=== PATIENT | female | born 1980 | race Caucasian/White ===

== ENCOUNTER → 2018-06-18 | Outpatient (CLI) | payer OTHER ==
--- NOTE | 2018-06-18 13:46 | Diagnostic Imaging Report ---
INDICATION: survey. TECHNIQUE: Multiple real-time grayscale images were obtained over the gravid uterus. COMPARISON: None. FINDINGS: There is a single live fetus in a cephalic presentation. heart rate was recorded at 144 beats per minute. The placenta is posterior. No previa is seen. The amniotic fluid volume is normal. Cervical length is 4.2 cm. survey demonstrates kidneys, bladder, and stomach to be unremarkable. The brain is unremarkable. There is a four-chamber heart. There is a three-vessel cord with normal insertion. The spine is unremarkable. Biometrical measurements are as follows: Biparietal 5.01 cm, age 21 weeks 2 days. Head circumference 19.83 cm, age 22 weeks 1 days. Abdominal circumference 18.26 cm, age 23 weeks 1 days. Femur length 4.1 cm, age 23 weeks 3 days. Sonographic estimate age: 22 weeks 4 days. Sonographic estimated date of delivery: 10/18/2017. Estimated Weight: 551 gm (+/- 80 gm). LMP percentile: 48%. heart rate: 144 beats per minute. number: 1 of 1. IMPRESSION: Single live IUP at 22 weeks 4 days gestational age. The estimated date of confinement sonographically is 10/18/2018. Dictated by: Dictated on workstation # [id number]
== END ==
LOC: RAD 12:07
PROVIDERS: ATTEND Obstetrics & Gynecology
DX: Z36.89 Encounter for other specified antenatal screening (principal); Z3A.22 22 weeks gestation of pregnancy
CPT/HCPCS: 76805

== ENCOUNTER 2018-10-02 06:35 | Inpatient (IN) | payer OTHER ==
[~2018-10-02] VITALS: Ht 167.6 cm; Wt 101.6 kg
[2018-10-02] VITALS (52 sets, daily range): BP systolic 80–181; BP diastolic 46–113
--- NOTE | 2018-10-02 06:45 | NUR ---
SENTHIL GONGORA presented to unit via ambulatory from ED, accompanied by s.o, with c/o INDUCTION. SENTHIL GONGORA weighed, gowned, voided, and to bed. EFHM and TOCO applied, VS taken. SENTHIL GONGORA oriented to bed controls, call light, TV, heat, and A/C controls.
[2018-10-02] MEDS ORDERED: OXYTOCIN/NORMAL SALINE 500 ML IV SCH ×2 (06:57→19:21)
--- NOTE | 2018-10-02 07:10 | NUR ---
Nurse in pt room. Report received from Venita Newell RN. Pt up in [facility] for repair. at warmer being assessed. 0715: Dr. Chen done with repair. Pt cleaned up and taken out of [facility]. Fundus firm and one under umbilicus with minimal bleeding noted. at this time.
--- NOTE | 2018-10-02 07:20 | NUR ---
Pt. complains that her IV is really hurting. Upon inspection edema and tenderness noted. IV has infiltrated. Fundus rubbed to check bleeding at this time. Minimal bleeding with firm fundus one under umbilicus. 0726: Dr. Chen called with report of infiltrated IV. Given report of current bleeding status. states that a new IV does not need to be started at this time, but to watch her bleeding and to call him with any changes.
[2018-10-02] MEDS: D5 LR IV SOLUTION 1,000 ML IV SCH ×2 (07:30→15:35)
[2018-10-02 08:10] LABS: BASOPHILS % (AUTO) 0 % (0-10); EOSINOPHILS % (AUTO) 1 % (0-10); HEMATOCRIT 29 % (35-52); LYMPHOCYTES # (AUTO) 1.8 X 10^3 (1.0-4.0); LYMPHOCYTES % (AUTO) 25 % (12-44); MEAN CORPUSCULAR HGB CONC 32 G/DL (32-36); MEAN CORPUSCULAR VOLUME 77 FL (80-99); MEAN PLATELET VOLUME 10.9 FL (7.4-10.4); MONOCYTES # (AUTO) 0.6 X 10^3 (0.0-1.0); MONOCYTES % (AUTO) 8 % (0-12); NEUTROPHILS # (AUTO) 4.8 X 10^3 (1.8-7.8); NEUTROPHILS % (AUTO) 67 % (42-75); PLATELET COUNT 239 10^3/uL (130-400); RED BLOOD COUNT 3.68 10^6/uL (4.35-5.85); RED CELL DISTRIBUTION WIDTH 14.3 % (10.0-14.5); WHITE BLOOD COUNT 7.2 10^3/uL (4.3-11.0)
[2018-10-02 08:11] LABS: MEAN CORPUSCULAR HEMOGLOBIN 24 PG (25-34)
[2018-10-02] MEDS ORDERED: SUFENTA 0.6MCG/ML BUPIVA 0.125 100 ML ONE (12:35)
[2018-10-02] MEDS ORDERED: CATHETER FLUSH 10 ML SYR IV SCH ×2 (14:00→22:00)
[2018-10-02] MEDS ORDERED: LACTATED RINGERS 1,000 ML IV SCH (14:03)
[2018-10-02] MEDS ORDERED: ONDANSETRON 4 MG/2 ML (SDV) Z0FRAN IV PRN (14:15)
[2018-10-02] MEDS ORDERED: diphenhydrAMINE 50 MG/ML INJ (BENADRYL) IV PRN (14:15)
[2018-10-02] MEDS ORDERED: EPIDURAL (SUFENTA 0.6MCG/ML BUPIVA 0.125%) 100 ML BAG EPI SCH (14:15)
[2018-10-02] MEDS ORDERED: METOCLOPRAMIDE INJ 10 MG/2 ML (REGLAN) IV PRN (14:15)
[2018-10-02] MEDS ORDERED: NALOXONE 0.4 MG/ML 1 ML (NARCAN) VIAL IV PRN ×2 (14:15)
[2018-10-02] MEDS ORDERED: LIDOCAINE/EPI 2% 1:200,00 (XYLOCAINE) 10 ML VIAL ONE (18:56)
[2018-10-02] MEDS ORDERED: TETANUS,DIPTH,PERTUSS P/F (BOOSTRIX) 0.5 ML VIAL IM ONE (19:30)
[2018-10-02] MEDS ORDERED: MEASLES,MUMPS,RUBELLA 1 EA INJ SQ ONE (19:30)
[2018-10-02] MEDS ORDERED: BENZOCAINE/MENTHOL (DERMOPLAST) 56 ML CAN TP PRN (19:30)
[2018-10-02] MEDS ORDERED: WITCH HAZEL(TUCKS) 40 EA JAR TOP PRN (19:30)
[2018-10-02] MEDS ORDERED: DIBUCAINE (NUPERCAINAL) 1% OINT 30 GM TOP PRN (19:30)
--- NOTE | 2018-10-02 19:31 | History & Physical-OB ---
OB - Chief Complaint & HPI Date/Time Date of Admission: Date of Admission: Oct 02, 2018 at 06:35 Date seen by a Provider: Oct 02, 2018 Time Seen by a Provider: 07:30 Chief Complaint/History OB-Reason for Admission/Chief: Induction of Labor Hx : 3 Hx Para: 2 Expected Date of Delivery: Oct 16, 2018 Gestational Age in Weeks: 38 Gestational Age in Days: 0 Indication for induction: other (Mild PreE) Admission Nurse Assessment Rev: Yes History of Labs Laboratory Tests Test 10/02/18 07:55 Range/Units White Blood Count 7.2 4.3-11.0 10^3/uL Red Blood Count 3.68 L 4.35-5.85 10^6/uL Hemoglobin 9.0 L 11.5-16.0 G/DL Hematocrit 29 L 35-52 % Mean Corpuscular Volume 77 L 80-99 FL Mean Corpuscular Hemoglobin 24 L 25-34 PG Mean Corpuscular Hemoglobin Concent 32 32-36 G/DL Red Cell Distribution Width 14.3 10.0-14.5 % Platelet Count 239 130-400 10^3/uL Mean Platelet Volume 10.9 H 7.4-10.4 FL Neutrophils (%) (Auto) 67 42-75 % Lymphocytes (%) (Auto) 25 12-44 % Monocytes (%) (Auto) 8 0-12 % Eosinophils (%) (Auto) 1 0-10 % Basophils (%) (Auto) 0 0-10 % Neutrophils # (Auto) 4.8 1.8-7.8 X 10^3 Lymphocytes # (Auto) 1.8 1.0-4.0 X 10^3 Monocytes # (Auto) 0.6 0.0-1.0 X 10^3 Eosinophils # (Auto) 0.0 0.0-0.3 10^3/uL Basophils # (Auto) 0.0 0.0-0.1 10^3/uL Allergies and Home Medications Allergies Coded Allergies: No Known Drug Allergies (Unverified , 10/02/18) Patient Home Medication List Home Medication List Reviewed: Yes OB - History Hx of Present Care: Yes Ultrasounds: Normal mid trimester US Abnormal Ultrasound Findings: IUD removed at finding of in 1st trimester Obstetrical Complications: Other (Mild PreE) Medical Complications: Other (Chronic HTN, AMA) Delivery History Adverse Rxn to Tranfusion: No Patient Past Medical History HTN Social History/Family History Recent Infectious Disease Expo: No Alcohol Use: Denies Use Recreational Drug Use: No Immunizations Hepatitis A: Yes Hepatitis B: Yes OB - Admission Exam Physical Exam Vitals: Vital Signs 10/02/18 10/02/18 18:55 19:10 Temp 99.0 Pulse 117 Resp 20 B/P (MAP) 143/97 (112) Pulse Ox 100 O2 Delivery Room Air HEENT: NCAT Heart: Rhythm Normal Lungs: Clear Abdomen: Gravid Extremities: Normal Reflexes: Normal Cervical Dilatation: 4cm Effacement: 75% Station: -1 Membranes: Intact Heart Rate: 130's Accelerations: Accelerations Present Decelerations: No Decelerations Short Term Variability: Present Division Traffic Superintendent Variability: Average (6-25) Contractions on Admission: 6-10 Minutes Apart Intensity: Mild Mcginnis Scoring Tool (Modified) Dilation (cm): 3-4cm (2) Effacement (%): 51-79% (2) Descent/Station: -1,0 (2) Cervix Consistency: Soft (2) Cervix Position: Anterior (2) Add 1 point for: Each previous vaginal delivery (1) Mcginnsi Score: 12 Labs Laboratory Tests Test 10/02/18 07:55 Range/Units White Blood Count 7.2 4.3-11.0 10^3/uL Red Blood Count 3.68 L 4.35-5.85 10^6/uL Hemoglobin 9.0 L 11.5-16.0 G/DL Hematocrit 29 L 35-52 % Mean Corpuscular Volume 77 L 80-99 FL Mean Corpuscular Hemoglobin 24 L 25-34 PG Mean Corpuscular Hemoglobin Concent 32 32-36 G/DL Red Cell Distribution Width 14.3 10.0-14.5 % Platelet Count 239 130-400 10^3/uL Mean Platelet Volume 10.9 H 7.4-10.4 FL Neutrophils (%) (Auto) 67 42-75 % Lymphocytes (%) (Auto) 25 12-44 % Monocytes (%) (Auto) 8 0-12 % Eosinophils (%) (Auto) 1 0-10 % Basophils (%) (Auto) 0 0-10 % Neutrophils # (Auto) 4.8 1.8-7.8 X 10^3 Lymphocytes # (Auto) 1.8 1.0-4.0 X 10^3 Monocytes # (Auto) 0.6 0.0-1.0 X 10^3 Eosinophils # (Auto) 0.0 0.0-0.3 10^3/uL Basophils # (Auto) 0.0 0.0-0.1 10^3/uL OB - Assessment/Plan/Diagnosis Assessment Assessment: induction of labor Admission Dx 38 yo @ 38 weeks Mild PreE Chronic HTN AMA GBS pos Admission Status: Inpatient Order (span 2 midnights) Reason for Inpatient Admission: Induction of labor Plan Induction Method: AROM ALLY WANG DO Oct 02, 2018 19:31
--- NOTE | 2018-10-02 19:35 | Discharge Inst-Women's Service ---
Discharge Inst-Women's Serv Depart Medication/Instructions New, Converted or Re-Newed RX: RX on Chart Final Diagnosis PPD 2 NVD Consults/Follow Up Additional Follow Up: Yes Orders/Referrals Dr. Chen in 6 weeks Activity Activity: Activity as Tolerated Driving Instructions: No Driving for 1 Week NO SMOKING: NO SMOKING Nothing Inside Vagina: No Douching, No [place], No Tampons Diet Discharge Diet: No Restrictions Symptoms to Report to : Bleeding Excessive, Pain Increased, Fever Over 101 Degrees F, Vaginal Bleeding Increase, Questions/Concerns For Any Problems or Questions: Contact Your Physician Skin/Wound Care Bathing Instructions: ALLY Uriostegui DO Oct 02, 2018 19:35
--- NOTE | 2018-10-02 19:35 | OB Labor & Delivery Record ---
L&D History Date of Service Date of Service: Oct 02, 2018 History Expected Date of Delivery: Oct 16, 2018 Gestational Age in Weeks: 38 Hx : 3 Hx Para: 2 Complications Events: Pre-Eclampsia Operative Indications (Cesarea: N/A-Vaginal Delivery Intrapartal Events: None Other Complications Inadequate dosing for GBS L&D Stage1 Stage One Onset of Labor - Date: Oct 02, 2018 Monitors and Tracing Monitor Mode: External Heart Rate: 145 Monitor Accelerations: Uniform Monitor Decelerations: None Station: +3 Group Home Variability: Average (6-10) Short Term Variability: Present Presentation: Vertex Vital Signs VS - Last 72 Hours, by Label 10/02/18 10/02/18 10/02/18 10/02/18 08:10 08:25 08:40 08:55 Temp 98.4 Pulse 78 81 77 76 Resp 20 20 18 18 B/P (MAP) 102/56 (71) 111/68 (82) 128/72 (90) 132/75 (94) O2 Delivery Room Air Room Air Room Air Room Air 10/02/18 10/02/18 10/02/18 10/02/18 09:10 09:25 09:40 09:55 Pulse 76 76 72 78 Resp 18 18 18 18 B/P (MAP) 119/71 (87) 119/71 (87) 138/84 (102) 142/81 (101) O2 Delivery Room Air Room Air Room Air Room Air 10/02/18 10/02/18 10/02/18 10/02/18 10:10 10:25 10:50 10:55 Pulse 75 86 103 90 Resp 18 20 20 20 B/P (MAP) 133/89 (104) 146/91 (109) 181/99 (126) 156/93 (114) O2 Delivery Room Air Room Air Room Air Room Air 10/02/18 10/02/18 10/02/18 10/02/18 11:10 11:40 12:00 12:25 Pulse 78 83 75 77 Resp 20 18 20 20 B/P (MAP) 140/73 (95) 147/80 (102) 151/94 (113) 132/81 (98) O2 Delivery Room Air Room Air Room Air Room Air 10/02/18 10/02/18 10/02/18 10/02/18 12:50 12:55 13:00 13:05 Pulse 88 86 93 107 Resp 20 20 20 20 B/P (MAP) 175/85 (115) 167/83 (111) 164/79 (107) 168/79 (108) Pulse Ox 99 98 98 98 O2 Delivery Room Air Room Air Room Air Room Air 10/02/18 10/02/18 10/02/18 10/02/18 13:10 13:15 13:30 13:45 Pulse 85 80 94 85 Resp 20 20 20 18 B/P (MAP) 129/58 (81) 113/58 (76) 110/58 (75) 80/46 (57) Pulse Ox 96 96 99 99 O2 Delivery Room Air Room Air Room Air Room Air 10/02/18 10/02/18 10/02/18 10/02/18 14:00 14:15 14:30 14:45 Pulse 92 77 77 86 Resp 18 18 18 18 B/P (MAP) 118/72 (87) 125/72 (89) 123/65 (84) 123/65 (84) Pulse Ox 99 99 99 95 O2 Delivery Room Air Room Air Room Air Room Air 10/02/18 10/02/18 10/02/18 10/02/18 14:53 15:10 15:22 15:40 Pulse 77 83 79 82 Resp 18 18 18 18 B/P (MAP) 120/67 (84) 124/77 (93) 124/76 (92) 145/76 (99) Pulse Ox 95 100 100 100 O2 Delivery Room Air Room Air Room Air Room Air 10/02/18 10/02/18 10/02/18 10/02/18 15:50 16:10 16:25 16:40 Pulse 88 85 93 85 Resp 18 18 18 18 B/P (MAP) 131/75 (93) 133/73 (93) 127/69 (88) 134/75 (94) Pulse Ox 100 99 99 99 O2 Delivery Room Air Room Air Room Air Room Air 10/02/18 10/02/18 10/02/18 10/02/18 16:55 17:10 17:25 17:40 Temp 99.0 Pulse 88 90 89 91 Resp 18 20 20 20 B/P (MAP) 135/79 (97) 135/78 (97) 157/91 (113) 139/81 (100) Pulse Ox 100 99 100 99 O2 Delivery Room Air Room Air Room Air Room Air 10/02/18 10/02/18 10/02/18 10/02/18 17:55 18:10 18:30 18:45 Pulse 100 96 93 97 Resp 20 18 18 20 B/P (MAP) 150/87 (108) 148/113 (125) 160/86 (110) 145/87 (106) Pulse Ox 98 100 100 100 O2 Delivery Room Air Room Air Room Air Room Air 10/02/18 10/02/18 18:55 19:10 Temp 99.0 99.0 Pulse 117 Resp 20 20 B/P (MAP) 143/97 (112) Pulse Ox 100 O2 Delivery Room Air Room Air Rupture of Membranes Amniotic Membrane Rupture Time: 1055 Amniotic Membrane Fluid Desc.: Clear Vaginal Bleeding Description: Normal Show Induction/Anesthesia Epidural Cath Placement - Time: 1256 Progress/Notes Pitocin augmentation used in combo with AROM, and patient progressed to complete to and +2 station L&D Stage2 Stage Two Stage II Date: Oct 02, 2018 Monitors and Tracing Monitor Mode: External Heart Rate: 145 Monitor Accelerations: Uniform Monitor Decelerations: Variable Building Supplies Salesperson Retail Variability: Average (6-10) Short Term Variability: Present Position: Right Occiput Anterior Presentation: Vertex Cord Descript/Complications Cord Vessel Description: 3 Vessels Complications nuchal cord reduced x 1 Delivery Type Infant Delivery Method: Spontaneous Vaginal Anterior Shoulder: Right Episiotomy/Perineal Laceration Laceraction(s)/Extensions: Yes Episiotomy Description: Right Mediolateral Sutures Used: Vicryl Degree (describe repair) RML repaired using 3-0 and 2-0 vicryl in usual fashion Condition of Infant Delivery 1 minute Comment: 7 5 minute Comment: 9 Notes Live female weight 8lbs 3 oz Condition of Condition of Infant: Living Exam: No Observed Abnormalities Resuscitation Resuscitation: N/A - Spontaneous Resp L&D Stage3 Stage Three Stage III Date: Oct 02, 2018 Pictocin Pitocin Administration mu/min: 8 Pitocin ml/hr: 8 Pitocin Administration Comment: wide open at delivery of placenta 30 mu Placenta Delivery Placenta Delivery: Spontaneous Delivery Summary Summary Estimated blood loss (mL): 350 Attending at delivery: Ally Wang DO Condition of Delivery Examined: Cervix Examined, Uterus Explored Post Hemorrhage: No Condition of Mother stable Condition of Infant (s) stable ALLY WANG DO Oct 02, 2018 19:35
[2018-10-02] MEDS ORDERED: Benzocaine/Menthol TP (19:36)
[2018-10-02] MEDS ORDERED: DOCU100C37 PO (19:36)
[2018-10-02] MEDS ORDERED: IBUP-844 PO (19:36)
[2018-10-02] MEDS ORDERED: ACHD5005 PO (19:36)
--- NOTE | 2018-10-02 19:45 | NUR ---
1945: Fundus firm and midline. One under umbilicus. Moderate bleeding noted, that slows with fundal massage. 1999: Fundus firm and midline. One under umbilicus. Minimal bleeding noted at this time. Pad changed after fundal massage to more accurately assess next check. 2014: Fundus firm and midline. One under umbilicus. Minimal to no bleeding noted upon massage of uterus. Minimal bleeding on pad. Pt. is sat back up and continues to nurse . Pt states that her legs are still pretty heavy at this time.
--- NOTE | 2018-10-02 21:20 | NUR ---
Pericare provided for pt, and pad and underwear put on. Pt denies having to use the bathroom at this time. Pt is transferred to room via wheelchair. Pt walks well when up. Pt helped into bed. Bathroom meds and packet are reviewed. 2129: Pt states that her arm is very sore where her IV infiltrated. Pt. given Motrin and and Ice pack for it at this time. Mom is feeding infant again after infant was showing hunger signs. Mom has no other questions or concerns at this time.
[2018-10-02] MEDS: IBUPROFEN 600 MG (MOTRIN) TAB PO SCH (21:37)
[2018-10-02] MEDS: DOCUSATE SODIUM 100 MG (COLACE) CAP PO SCH (21:38)
[2018-10-02] MEDS: HYDROcodone/APAP 5 MG/325 MG (LORTAB) TAB PO PRN (22:58)
--- NOTE | 2018-10-03 01:00 | NUR ---
Pt. calls out and states that she is done feeding and asks if the infant can be kept in the nursery for a while so that she can get a couple hours of sleep. Pt. has recently showered. Vitals taken at this time, and pt is left to sleep.
[2018-10-03 03:10] VITALS: BP 128/83
[2018-10-03] MEDS: IBUPROFEN 600 MG (MOTRIN) TAB PO SCH ×4 (03:13→21:18)
[2018-10-03] MEDS: HYDROcodone/APAP 5 MG/325 MG (LORTAB) TAB PO PRN ×3 (03:30→19:17)
--- NOTE | 2018-10-03 03:30 | NUR ---
Pt calls nurse to bedside. Pt states that her cramps are really bad and request more pain meds if available. 2 Lortab given at this time.
[2018-10-03 06:11] LABS: BASOPHILS % (AUTO) 0 % (0-10); EOSINOPHILS % (AUTO) 0 % (0-10); HEMATOCRIT 27 % (35-52); HEMOGLOBIN 8.2 G/DL (11.5-16.0); LYMPHOCYTES # (AUTO) 2.2 X 10^3 (1.0-4.0); LYMPHOCYTES % (AUTO) 21 % (12-44); MEAN CORPUSCULAR HEMOGLOBIN 24 PG (25-34); MEAN CORPUSCULAR HGB CONC 31 G/DL (32-36); MEAN CORPUSCULAR VOLUME 78 FL (80-99); MEAN PLATELET VOLUME 11.1 FL (7.4-10.4); MONOCYTES # (AUTO) 0.8 X 10^3 (0.0-1.0); MONOCYTES % (AUTO) 7 % (0-12); NEUTROPHILS # (AUTO) 7.5 X 10^3 (1.8-7.8); NEUTROPHILS % (AUTO) 72 % (42-75); PLATELET COUNT 228 10^3/uL (130-400); RED BLOOD COUNT 3.43 10^6/uL (4.35-5.85); RED CELL DISTRIBUTION WIDTH 14.1 % (10.0-14.5); WHITE BLOOD COUNT 10.4 10^3/uL (4.3-11.0)
[2018-10-03 07:09] VITALS: BP 128/60
--- NOTE | 2018-10-03 10:23 | Postpartum Progress Note ---
Note Note Day # 1 Subjective: Patient is without complaints. Ambulating, voiding. Tolerating a regular diet without nausea or vomiting. Normal lochia. Pain is well controlled with oral pain medications. Objective: Vital Sign - Last 24 Hours 10/02/18 10/02/18 10/02/18 10/02/18 10:25 10:50 10:55 11:10 Pulse 86 103 90 78 Resp 20 20 20 20 B/P (MAP) 146/91 (109) 181/99 (126) 156/93 (114) 140/73 (95) O2 Delivery Room Air Room Air Room Air Room Air 10/02/18 10/02/18 10/02/18 10/02/18 11:40 12:00 12:25 12:50 Pulse 83 75 77 88 Resp 18 20 20 20 B/P (MAP) 147/80 (102) 151/94 (113) 132/81 (98) 175/85 (115) Pulse Ox 99 O2 Delivery Room Air Room Air Room Air Room Air 10/02/18 10/02/18 10/02/18 10/02/18 12:55 13:00 13:05 13:10 Pulse 86 93 107 85 Resp 20 20 20 20 B/P (MAP) 167/83 (111) 164/79 (107) 168/79 (108) 129/58 (81) Pulse Ox 98 98 98 96 O2 Delivery Room Air Room Air Room Air Room Air 10/02/18 10/02/18 10/02/18 10/02/18 13:15 13:30 13:45 14:00 Pulse 80 94 85 92 Resp 20 20 18 18 B/P (MAP) 113/58 (76) 110/58 (75) 80/46 (57) 118/72 (87) Pulse Ox 96 99 99 99 O2 Delivery Room Air Room Air Room Air Room Air 10/02/18 10/02/18 10/02/18 10/02/18 14:15 14:30 14:45 14:53 Pulse 77 77 86 77 Resp 18 18 18 18 B/P (MAP) 125/72 (89) 123/65 (84) 123/65 (84) 120/67 (84) Pulse Ox 99 99 95 95 O2 Delivery Room Air Room Air Room Air Room Air 10/02/18 10/02/18 10/02/18 10/02/18 15:10 15:22 15:40 15:50 Pulse 83 79 82 88 Resp 18 18 18 18 B/P (MAP) 124/77 (93) 124/76 (92) 145/76 (99) 131/75 (93) Pulse Ox 100 100 100 100 O2 Delivery Room Air Room Air Room Air Room Air 10/02/18 10/02/18 10/02/18 10/02/18 16:10 16:25 16:40 16:55 Pulse 85 93 85 88 Resp 18 18 18 18 B/P (MAP) 133/73 (93) 127/69 (88) 134/75 (94) 135/79 (97) Pulse Ox 99 99 99 100 O2 Delivery Room Air Room Air Room Air Room Air 10/02/18 10/02/18 10/02/18 10/02/18 17:10 17:25 17:40 17:55 Temp 99.0 Pulse 90 89 91 100 Resp 20 20 20 20 B/P (MAP) 135/78 (97) 157/91 (113) 139/81 (100) 150/87 (108) Pulse Ox 99 100 99 98 O2 Delivery Room Air Room Air Room Air Room Air 10/02/18 10/02/18 10/02/18 10/02/18 18:10 18:30 18:45 18:55 Temp 99.0 Pulse 96 93 97 117 Resp 18 18 20 20 B/P (MAP) 148/113 (125) 160/86 (110) 145/87 (106) 143/97 (112) Pulse Ox 100 100 100 100 O2 Delivery Room Air Room Air Room Air Room Air 10/02/18 10/02/18 10/02/18 10/02/18 19:06 19:10 19:21 19:32 Temp 98.3 99.0 98.3 Pulse 107 92 106 Resp 20 20 20 20 B/P (MAP) 134/74 (94) 145/77 (99) 142/74 (96) Pulse Ox 100 O2 Delivery Room Air Room Air 10/02/18 10/02/18 10/02/18 10/02/18 19:48 20:10 20:38 21:45 Temp 98.6 98.6 98.1 99.5 Pulse 121 102 111 95 Resp 20 20 18 18 B/P (MAP) 130/82 (98) 159/87 (111) 134/90 (105) 140/83 (102) Pulse Ox 97 O2 Delivery Room Air Room Air Room Air 10/03/18 10/03/18 03:10 07:09 Temp 98.2 98.2 Pulse 87 79 Resp 16 18 B/P (MAP) 128/83 (98) 128/60 (82) Pulse Ox 97 97 O2 Delivery Room Air Room Air Intake and Output 10/02/18 10/02/18 10/03/18 15:00 23:00 07:00 Intake Total 1000 ml Balance 1000 ml Physical Exam: General - Alert and oriented, no apparent distress Abdomen - Soft, appropriately tender to palpation, non-distended, fundus firm at umbilicus Extremities - no edema, negative Santana's bilaterally Assessment: PPD 1 NVD Acute blood loss anemia AMA Plan: Routine care. Encourage breast feeding. Encourage ambulation. Ferrous sulfate supplementation. Plan for discharge tomorrow Vitals - Labs Vital Signs - I&O Vital Signs Date Time Temp Pulse Resp B/P (MAP) Pulse Ox O2 Delivery O2 Flow Rate FiO2 10/03/18 07:09 98.2 79 18 128/60 (82) 97 Room Air 10/03/18 03:10 98.2 87 16 128/83 (98) 97 Room Air 10/02/18 21:45 99.5 95 18 140/83 (102) 97 Room Air 10/02/18 20:38 98.1 111 18 134/90 (105) Room Air 10/02/18 20:10 98.6 102 20 159/87 (111) Room Air 10/02/18 19:48 98.6 121 20 130/82 (98) 10/02/18 19:32 106 20 142/74 (96) 10/02/18 19:21 98.3 92 20 145/77 (99) 10/02/18 19:10 99.0 20 Room Air 10/02/18 19:06 98.3 107 20 134/74 (94) 100 Room Air 10/02/18 18:55 99.0 117 20 143/97 (112) 100 Room Air 10/02/18 18:45 97 20 145/87 (106) 100 Room Air 10/02/18 18:30 93 18 160/86 (110) 100 Room Air 10/02/18 18:10 96 18 148/113 (125) 100 Room Air 10/02/18 17:55 100 20 150/87 (108) 98 Room Air 10/02/18 17:40 91 20 139/81 (100) 99 Room Air 10/02/18 17:25 99.0 89 20 157/91 (113) 100 Room Air 10/02/18 17:10 90 20 135/78 (97) 99 Room Air 10/02/18 16:55 88 18 135/79 (97) 100 Room Air 10/02/18 16:40 85 18 134/75 (94) 99 Room Air 10/02/18 16:25 93 18 127/69 (88) 99 Room Air 10/02/18 16:10 85 18 133/73 (93) 99 Room Air 10/02/18 15:50 88 18 131/75 (93) 100 Room Air 10/02/18 15:40 82 18 145/76 (99) 100 Room Air 10/02/18 15:22 79 18 124/76 (92) 100 Room Air 10/02/18 15:10 83 18 124/77 (93) 100 Room Air 10/02/18 14:53 77 18 120/67 (84) 95 Room Air 10/02/18 14:45 86 18 123/65 (84) 95 Room Air 10/02/18 14:30 77 18 123/65 (84) 99 Room Air 10/02/18 14:15 77 18 125/72 (89) 99 Room Air 10/02/18 14:00 92 18 118/72 (87) 99 Room Air 10/02/18 13:45 85 18 80/46 (57) 99 Room Air 10/02/18 13:30 94 20 110/58 (75) 99 Room Air 10/02/18 13:15 80 20 113/58 (76) 96 Room Air 10/02/18 13:10 85 20 129/58 (81) 96 Room Air 10/02/18 13:05 107 20 168/79 (108) 98 Room Air 10/02/18 13:00 93 20 164/79 (107) 98 Room Air 10/02/18 12:55 86 20 167/83 (111) 98 Room Air 10/02/18 12:50 88 20 175/85 (115) 99 Room Air 10/02/18 12:25 77 20 132/81 (98) Room Air 10/02/18 12:00 75 20 151/94 (113) Room Air 10/02/18 11:40 83 18 147/80 (102) Room Air 10/02/18 11:10 78 20 140/73 (95) Room Air 10/02/18 10:55 90 20 156/93 (114) Room Air 10/02/18 10:50 103 20 181/99 (126) Room Air 10/02/18 10:25 86 20 146/91 (109) Room Air I & O 10/03/18 07:00 Intake Total 1000 ml Balance 1000 ml Labs Laboratory Tests 10/03/18 05:42: White Blood Count 10.4, Red Blood Count 3.43L, Hemoglobin 8.2L, Hematocrit 27L, Mean Corpuscular Volume 78L, Mean Corpuscular Hemoglobin 24L, Mean Corpuscular Hemoglobin Concent 31L, Red Cell Distribution Width 14.1, Platelet Count 228, Mean Platelet Volume 11.1H, Neutrophils (%) (Auto) 72, Lymphocytes (%) (Auto) 21 , Monocytes (%) (Auto) 7, Eosinophils (%) (Auto) 0, Basophils (%) (Auto) 0, Neutrophils # (Auto) 7.5, Lymphocytes # (Auto) 2.2, Monocytes # (Auto) 0.8, Eosinophils # (Auto) 0.0, Basophils # (Auto) 0.0 ALLY WANG DO Oct 03, 2018 10:23
[2018-10-03] MEDS: FERROUS SULF 325 MG (IRON) TAB PO SCH (10:25)
[2018-10-03] MEDS: PRENATAL VITAMIN 1 EA TAB PO SCH (10:25)
[2018-10-03 10:30] VITALS: BP 143/91
[2018-10-03 15:30] VITALS: BP 139/86
[2018-10-03 20:45] VITALS: BP 133/77
[2018-10-03] MEDS: DOCUSATE SODIUM 100 MG (COLACE) CAP PO SCH (21:18)
[2018-10-04] MEDS: HYDROcodone/APAP 5 MG/325 MG (LORTAB) TAB PO PRN ×3 (03:31→16:49)
[2018-10-04] MEDS: IBUPROFEN 600 MG (MOTRIN) TAB PO SCH ×3 (03:31→15:00)
[2018-10-04 04:30] VITALS: BP 146/77
[2018-10-04 08:35] VITALS: BP 128/79
[2018-10-04] MEDS: FERROUS SULF 325 MG (IRON) TAB PO SCH (08:35)
[2018-10-04] MEDS: PRENATAL VITAMIN 1 EA TAB PO SCH (08:35)
[2018-10-04] MEDS: DOCUSATE SODIUM 100 MG (COLACE) CAP PO SCH (08:35)
--- NOTE | 2018-10-04 08:35 | NUR ---
initial shift assessment completed, see interventions for further. and @ side.
--- NOTE | 2018-10-04 09:30 | NUR ---
here. dismissal orders received.
--- NOTE | 2018-10-04 09:44 | Postpartum Progress Note ---
Note Note Day # 2 Subjective: Patient is without complaints. Ambulating, voiding. Tolerating a regular diet without nausea or vomiting. Normal lochia. Pain is well controlled with oral pain medications. Objective: Physical Exam: General - Alert and oriented, no apparent distress Abdomen - Soft, appropriately tender to palpation, non-distended, fundus firm at umbilicus Extremities - no edema, negative Santana's bilaterally Assessment: PPD 2 NVD Acute blood loss anemia AMA CHTN Plan: Routine care. Encourage breast feeding. Encourage ambulation. Ferrous sulfate supplementation. Plan for discharge today Vitals - Labs Vital Signs - I&O Vital Signs Date Time Temp Pulse Resp B/P (MAP) Pulse Ox O2 Delivery O2 Flow Rate FiO2 10/04/18 04:30 97.5 82 18 146/77 (100) 97 10/03/18 20:45 97.7 78 18 133/77 (95) 99 10/03/18 15:30 97.7 85 18 139/86 (103) Room Air 10/03/18 10:30 97.9 82 18 143/91 (108) 97 Room Air I & O 10/04/18 07:00 Intake Total 800 ml Balance 800 ml ALLY WANG DO Oct 04, 2018 9:44 am
--- NOTE | 2018-10-04 13:11 | Anesthesia-Regional Post-Op ---
Regional Patient Condition Mental Status: Alert, Oriented x3 Circulation: Same as Pre-Op Headache: Absent Sensation: Full Recovery Motor Block: Absent Post Op Complications Complications None Follow Up Care/Instructions Patient Instructions None needed. Anesthesia/Patient Condition Patient is doing well, no complaints, stable vital signs, no apparent adverse anesthesia problems. No complications reported per nursing. RENY MCCLOUD CRNA Oct 04, 2018 13:11
[2018-10-04 14:56] VITALS: BP 143/85
--- NOTE | 2018-10-04 15:04 | NUR ---
dismissal instructions given, verbalizes understanding. instructed pt to call to schedule 6 week post appointment. reviewed Rx's. signature page signed, placed on chart.
--- NOTE | 2018-10-04 15:24 | NUR ---
report given to Jessica RN
--- NOTE | 2018-10-04 17:30 | NUR ---
PREPARING FOR DISCHARGE.
[2018-10-04 18:25] VITALS: BP 143/85
--- NOTE | 2018-10-04 18:25 | NUR ---
DISMISSED VIA W/C WITH INFANT IN STABLE CONDITION TO [facility] BY SPOUSE AND JOVANNA VAZQUEZ
--- NOTE | 2018-10-06 14:34 | Physician Query Clarification ---
PQ-Further Specificity Admission/Discharge Admission Date: Oct 02, 2018 at 06:35 Discharge Date: Oct 04, 2018 at 18:25 The medical record reflects the following clinical scenario: History/Risk Factors: Mild Pre-eclampsia w chronic HTN, delivered Clinical Findings: hgb/Hct 9.0/ prior to delivery hgbHct 8.2/ post delivery, EBL 350 Treatment: Ferrous sulfate Question: Can you further specify the type of anemia per the clinical indicators above? Please document below. 1. Anemia of with postop dilutional anemia 2. Anemia of with postop ABLA 3. Other, with explanation of the clinical findings. 4. Clinically undetermined, no explanation for the clinical findings. PHYSICIAN RESPONSE Can you specify per above: 2 Explanation/Clinical Findings Anemia of with postop ABLA In responding to this query, please exercise your independent professional judgment. The purpose of this communication is to more accurately reflect the complexity of your patients condition. The fact that a question is asked does not imply that any particular answer is desired or expected. Thank you for your timely response to this clarification. Requestors name: Mone THIS PHYSICIAN QUERY FORM IS A PERMANENT PART OF THE MEDICAL RECORD MONE POZO Oct 06, 2018 14:34 ALLY AWNG DO Oct 06, 2018 15:47
--- NOTE | 2018-10-09 15:21 | Physician Query-Final Dx ---
CARLEEN ROBBINS 10/09/18 1521: Final Diagnosis Give Final Diagnosis Please give Final Diagnosis ALLY WANG DO 10/09/18 1528: Final Diagnosis Give Final Diagnosis PPD 2 NVD CARLEEN ROBBINS Oct 09, 2018 15:21 ALLY WANG DO Oct 09, 2018 15:28
== END 2018-10-04 18:25 | disposition home or self-care (01) | DRG 806 ==
LOC: LDRP 06:35
PROVIDERS: ADMIT Obstetrics & Gynecology; ATTEND Obstetrics & Gynecology
PROC: 10E0XZZ Delivery of Products of Conception, External Approach (ICD-10-PCS; principal; 2018-10-02)
PROC: 0W8NXZZ Division of Female Perineum, External Approach (ICD-10-PCS; 2018-10-02)
PROC: 3E033VJ Introduction of Other Hormone into Peripheral Vein, Percutaneous Approach (ICD-10-PCS; 2018-10-02)
DX: O11.4 Pre-existing hypertension with pre-eclampsia, complicating childbirth (principal); O99.824 Streptococcus B carrier state complicating childbirth; O69.81X0 Labor and delivery complicated by cord around neck, without compression, not applicable or unspecified; O90.81 Anemia of the puerperium; D62 Acute posthemorrhagic anemia; Z37.0 Single live birth; Z3A.38 38 weeks gestation of pregnancy; O99.02 Anemia complicating childbirth; D64.9 Anemia, unspecified
CPT/HCPCS: 36415; 85025; 86850; 86900; 86901

== ENCOUNTER 2018-10-09 11:46 | Observation (INO) | payer OTHER ==
[~2018-10-09] VITALS: Ht 170.2 cm; Wt 101.6 kg
[2018-10-09] VITALS (8 sets, daily range): BP systolic 134–162; BP diastolic 78–88
[~2018-10-09 11:46] MED LIST: ACHD5005 PO; Benzocaine/Menthol TP; DOCU100C37 PO; IBUP-844 PO
[2018-10-09 13:16] LABS: BASOPHILS % (AUTO) 0 % (0-10); EOSINOPHILS # (AUTO) 0.1 10^3/uL (0.0-0.3); EOSINOPHILS % (AUTO) 1 % (0-10); HEMATOCRIT 28 % (35-52); HEMOGLOBIN 8.5 G/DL (11.5-16.0); LYMPHOCYTES # (AUTO) 1.6 X 10^3 (1.0-4.0); LYMPHOCYTES % (AUTO) 19 % (12-44); MEAN CORPUSCULAR HEMOGLOBIN 24 PG (25-34); MEAN CORPUSCULAR HGB CONC 30 G/DL (32-36); MEAN CORPUSCULAR VOLUME 80 FL (80-99); MEAN PLATELET VOLUME 10.1 FL (7.4-10.4); MONOCYTES # (AUTO) 0.6 X 10^3 (0.0-1.0); MONOCYTES % (AUTO) 8 % (0-12); NEUTROPHILS # (AUTO) 5.9 X 10^3 (1.8-7.8); NEUTROPHILS % (AUTO) 72 % (42-75); PLATELET COUNT 387 10^3/uL (130-400); RED BLOOD COUNT 3.52 10^6/uL (4.35-5.85); RED CELL DISTRIBUTION WIDTH 15.2 % (10.0-14.5); WHITE BLOOD COUNT 8.2 10^3/uL (4.3-11.0)
[2018-10-09 13:28] LABS: ALANINE AMINOTRANSFERASE 62 U/L (0-55); ALBUMIN 3.3 GM/DL (3.2-4.5); ALKALINE PHOSPHATASE 141 U/L (40-136); BILIRUBIN,TOTAL 0.2 MG/DL (0.1-1.0); BUN/CREATININE RATIO 22; CALCIUM 8.2 MG/DL (8.5-10.1); CARBON DIOXIDE 22 MMOL/L (21-32); CHLORIDE 109 MMOL/L (98-107); CREATININE SERUM 0.76 MG/DL (0.60-1.30); GFR ESTIMATED > 60; GLUCOSE 81 MG/DL (70-105); SODIUM 137 MMOL/L (135-145); TOTAL PROTEIN 6.5 GM/DL (6.4-8.2)
[2018-10-09 14:03] LABS: BILIRUBIN,URINE NEGATIVE (NEGATIVE); GLUCOSE, URINE (UA) NEGATIVE (NEGATIVE); KETONES,URINE 2+ (NEGATIVE); LEUKOCYTE ESTERASE ,URINE 3+ (NEGATIVE); NITRITE,URINE POSITIVE (NEGATIVE); PH,URINE 6 (5-9); PROTEIN,URINE 3+ (NEGATIVE); UROBILINOGEN,URINE NORMAL (NORMAL)
[2018-10-09 14:12] LABS: BACTERIA,URINE FEW /HPF; CLARITY,URINE CLOUDY; COLOR,URINE RED; RBC,URINE TNTC /HPF; SQUAMOUS EPITHELIAL CELL,UR 0-2 /HPF; WBC,URINE TNTC /HPF
--- NOTE | 2018-10-09 14:56 | ED General ---
General Chief Complaint: Cardiac/General Problems Stated Complaint: HIGH BP Nursing Triage Note: PT CO OF EPIGASTRIC PAIN AND HTN, STATES STARTED APPROX 4 DAYS AGO. PT STATES HAD BABY ON 10/02/18. PT STATES CALLED DR'S OFFICE AND WAS TOLD TO COME TO ED. Nursing Sepsis Screen: No Definite Risk Source of Information: Patient Exam Limitations: No Limitations History of Present Illness Date Seen by Provider: Oct 09, 2018 Time Seen by Provider: 14:50 Initial Comments The patient is a 38-year-old white female who delivered her third child on . 3-4 days ago she began to be disturbed by epigastric pain. She has tried Pepto-Bismol and Tums without relief. She states that she had some degree of preeclampsia with each of her to prior babies. She also has had a cholecystectomy which occurred while she was with the first child. Timing/Duration: 3-4 Days Allergies and Home Medications Allergies Coded Allergies: No Known Drug Allergies (Unverified , 10/02/18) Home Medications Docusate Sodium 100 Mg Capsule, 100 MG PO BID PRN for CONSTIPATION-1ST LINE Prescribed by: ALLY WANG on 10/02/181935 Hydrocodone Bit/Acetaminophen 1 Tab Tab, 1-2 TAB PO Q4H PRN for PAIN-MODERATE Prescribed by: ALLY WANG on 10/02/181935 Ibuprofen 600 Mg Tablet, 600 MG PO Q6H Prescribed by: ALLY WANG on 10/02/181935 [Benzocaine/Menthol] 56 ML AEROSOL, 56 ML TP UD PRN for PAIN- SEE INSTRUCTIONS EXTERNAL USE ONLY Prescribed by: ALLY WANG on 10/02/181935 Patient Home Medication List Home Medication List Reviewed: Yes Review of Systems Review of Systems Constitutional: see HPI EENTM: no symptoms reported Respiratory: no symptoms reported Cardiovascular: no symptoms reported Gastrointestinal: no symptoms reported, other (epigastric pain) Genitourinary: dysuria Musculoskeletal: no symptoms reported Skin: no symptoms reported Psychiatric/Neurological: No Symptoms Reported Hematologic/Lymphatic: No Symptoms Reported Immunological/Allergic: no symptoms reported Past Tobfthq-Xglvby-Efioor Hx Patient Social History Alcohol Use: Denies Use Recreational Drug Use: No Smoking Status: Never a Smoker Recent Foreign Travel: No Contact w/Someone Who Travel: No Recent Infectious Disease Expo: No Recent Hopitalizations: No Immunizations Up To Date Tetanus Booster (TDap): Unknown PED Vaccines UTD: Yes Date of Influenza Vaccine: Jul 07, 2018 Seasonal Allergies Seasonal Allergies: No Past Medical History Surgeries: Yes Respiratory: No Cardiac: No Neurological: No : No Genitourinary: No Gastrointestinal: Yes Gastroesophageal Reflux Musculoskeletal: No Endocrine: No HEENT: No Cancer: No Psychosocial: No Integumentary: No Blood Disorders: No Adverse Reaction/Blood Tranf: No Family Medical History Hypertension 19 MOTHER Physical Exam Vital Signs Vital Signs - First Documented 10/09/18 12:35 Temp 98.5 Pulse 70 Resp 18 B/P (MAP) 175/106 (129) Pulse Ox 100 Capillary Refill : Less Than 3 Seconds Height, Weight, BMI Height: 5'7.00" Weight: 210lbs. 0.0oz. [age]yo; 36.2 BMI Method:Stated General Appearance: Mild Distress Eyes: Bilateral Eye Normal Inspection HEENT: Normal ENT Inspection Neck: Normal Inspection Respiratory: Chest Non Tender, Lungs Clear, Normal Breath Sounds, No Accessory Muscle Use, No Respiratory Distress Cardiovascular: Regular Rate, Rhythm, No Edema, No Gallop, No JVD, No Murmur, Normal Peripheral Pulses Gastrointestinal: Normal Bowel Sounds, No Organomegaly, No Pulsatile Mass, Non Tender, Soft Extremity: Normal Capillary Refill, Normal Inspection, Normal Range of Motion, Non Tender, No Calf Tenderness, No Pedal Edema Neurologic/Psychiatric: Alert, Oriented x3, No Motor/Sensory Deficits, Normal Mood/Affect Skin: Normal Color, Warm/Dry Progress/Results/Core Measures Suspected Sepsis Recent Fever Within 48 Hours: No Infection Criteria Present: None New/Unexplained Altered Menta: No Sepsis Screen: No Definite Risk SIRS Temperature:98.5 Pulse: 70 Respiratory Rate: 18 Laboratory Tests 10/09/18 12:34: White Blood Count 8.2 Blood Pressure 175 /106 Mean: 129 Laboratory Tests 10/09/18 12:34: Creatinine 0.76, Platelet Count 387, Total Bilirubin 0.2 Results/Orders Lab Results Laboratory Tests Test 10/09/18 12:34 10/09/18 13:50 Range/Units White Blood Count 8.2 4.3-11.0 10^3/uL Red Blood Count 3.52 L 4.35-5.85 10^6/uL Hemoglobin 8.5 L 11.5-16.0 G/DL Hematocrit 28 L 35-52 % Mean Corpuscular Volume 80 80-99 FL Mean Corpuscular Hemoglobin 24 L 25-34 PG Mean Corpuscular Hemoglobin Concent 30 L 32-36 G/DL Red Cell Distribution Width 15.2 H 10.0-14.5 % Platelet Count 387 130-400 10^3/uL Mean Platelet Volume 10.1 7.4-10.4 FL Neutrophils (%) (Auto) 72 42-75 % Lymphocytes (%) (Auto) 19 12-44 % Monocytes (%) (Auto) 8 0-12 % Eosinophils (%) (Auto) 1 0-10 % Basophils (%) (Auto) 0 0-10 % Neutrophils # (Auto) 5.9 1.8-7.8 X 10^3 Lymphocytes # (Auto) 1.6 1.0-4.0 X 10^3 Monocytes # (Auto) 0.6 0.0-1.0 X 10^3 Eosinophils # (Auto) 0.1 0.0-0.3 10^3/uL Basophils # (Auto) 0.0 0.0-0.1 10^3/uL Sodium Level 137 135-145 MMOL/L Potassium Level 4.0 3.6-5.0 MMOL/L Chloride Level 109 H 98-107 MMOL/L Carbon Dioxide Level 22 21-32 MMOL/L Anion Gap 6 5-14 MMOL/L Blood Urea Nitrogen 17 7-18 MG/DL Creatinine 0.76 0.60-1.30 MG/DL Estimat Glomerular Filtration Rate > 60 BUN/Creatinine Ratio 22 Glucose Level 81 70-105 MG/DL Calcium Level 8.2 L 8.5-10.1 MG/DL Corrected Calcium 8.8 8.5-10.1 MG/DL Total Bilirubin 0.2 0.1-1.0 MG/DL Aspartate Amino Transf (AST/SGOT) 49 H 5-34 U/L Alanine Aminotransferase (ALT/SGPT) 62 H 0-55 U/L Alkaline Phosphatase 141 H 40-136 U/L Total Protein 6.5 6.4-8.2 GM/DL Albumin 3.3 3.2-4.5 GM/DL Urine Color RED H Urine Clarity CLOUDY Urine pH 6 5-9 Urine Specific [place] 1.020 1.016-1.022 Urine Protein 3+ H NEGATIVE Urine Glucose (UA) NEGATIVE NEGATIVE Urine Ketones 2+ H NEGATIVE Urine Nitrite POSITIVE H NEGATIVE Urine Bilirubin NEGATIVE NEGATIVE Urine Urobilinogen NORMAL NORMAL MG/DL Urine Leukocyte Esterase 3+ H NEGATIVE Urine RBC (Auto) 5+ H NEGATIVE Urine RBC TNTC H /HPF Urine WBC TNTC H /HPF Urine Squamous Epithelial Cells 0-2 /HPF Urine Crystals NONE /LPF Urine Bacteria FEW H /HPF Urine Casts NONE /LPF Urine Mucus NEGATIVE /LPF Urine Culture Indicated YES My Orders Orders - MODESTO SUBRAMANIAN MD Cbc With Automated Diff (10/09/18 13:08) Comprehensive Metabolic Panel (10/09/18 13:08) Ua Culture If Indicated (10/09/18 13:08) Urine Culture (10/09/18 13:50) Vital Signs/I&O 10/09/18 12:35 Temp 98.5 Pulse 70 Resp 18 B/P (MAP) 175/106 (129) Pulse Ox 100 Capillary Refill : Less Than 3 Seconds Blood Pressure Mean: 129 Departure Communication (Admissions) Discussed with Dr. WANG at 1450. He reported that with her present blood pressure and the elevation in liver enzymes that she should be admitted for IV magnesium. He will come to the emergency room to write these orders. Impression Primary Impression: eclampsia Disposition: ADMITTED INPATIENT Condition: Stable/Unchanged Admissions Decision to Admit Reason: Admit from ER (General) Decision to Admit/Date: Oct 09, 2018 Time/Decision to Admit Time: 14:55 Departure-Patient Inst. Referrals: NO,LOCAL PHYSICIAN (PCP/Family) Primary Care Physician MODESTO SUBRAMANIAN MD Oct 09, 2018 14:56
[2018-10-09] MEDS ORDERED: CALCIUM GLUC. 10% 4.65 MEQ/10 ML VIAL IV PRN (15:00)
[2018-10-09] MEDS ORDERED: amLODIPine 5 MG (NORVASC) TAB PO NR (15:00)
[2018-10-09] MEDS ORDERED: hydrALAZINE (APESOLINE) 20 MG/ML VIAL IV NR (15:00)
[2018-10-09] MEDS ORDERED: MAGNESIUM 4 GM/100 ML IVPB 100 ML IV SCH (15:00)
--- NOTE | 2018-10-09 15:33 | History & Physical-OB/GYN ---
History of Present Illness History of Present Illness Reason for visit/HPI Upper abdominal pain, and elevated BP at home. PPD 5 days from NVD Date of Admission 10/09/2018 Date Seen by a Provider: Oct 09, 2018 Time Seen by a Provider: 15:15 I consulted on this patient on 10/09/18 15:30 Attending Physician Ally Wang DO Admitting Physician No,Local Physician Consult Allergies and Home Medications Allergies Coded Allergies: No Known Drug Allergies (Unverified , 10/02/18) Home Medications Docusate Sodium 100 Mg Capsule, 100 MG PO BID PRN for CONSTIPATION-1ST LINE Prescribed by: ALLY WANG on 10/02/181935 Hydrocodone Bit/Acetaminophen 1 Tab Tab, 1-2 TAB PO Q4H PRN for PAIN-MODERATE Prescribed by: ALLY WANG on 10/02/181935 Ibuprofen 600 Mg Tablet, 600 MG PO Q6H Prescribed by: ALLY WANG on 10/02/181935 [Benzocaine/Menthol] 56 ML AEROSOL, 56 ML TP UD PRN for PAIN- SEE INSTRUCTIONS EXTERNAL USE ONLY Prescribed by: ALLY WANG on 10/02/181935 Patient Home Medication List Home Medication List Reviewed: Yes Past Vozqwjn-Kgupnq-Tikfnp Hx Patient Social History Alcohol Use: Denies Use Recreational Drug Use: No Smoking Status: Never a Smoker Recent Foreign Travel: No Contact w/other who traveled: No Recent Hopitalizations: No Recent Infectious Disease Expo: No Immunizations Up To Date Tetanus Booster (TDap): Unknown Pediatric: Yes Date of Influenza Vaccine: Jul 07, 2018 Seasonal Allergies Seasonal Allergies: No Surgeries Yes Respiratory No Cardiovascular No Neurological No Reproductive System : No Genitourinary No Gastrointestinal Yes Gastroesophageal Reflux Musculoskeletal No Endocrine History of Endocrine Disorders: No HEENT History of HEENT Disorders: No Cancer No Psychosocial History of Psychiatric Problem: No Integumentary History of Skin or Integumenta: No Blood Transfusions History of Blood Disorders: No Adverse Reaction to a Blood Tr: No Family Medical History Family Hx: Hypertension 19 MOTHER Review of Systems Constitutional: see HPI EENTM: see HPI Respiratory: see HPI Cardiovascular: see HPI Genitourinary: see HPI Musculoskeletal: see HPI Skin: see HPI Psychiatric/Neurological: See HPI All Other Systems Reviewed Negative Unless Noted: Yes Physical Exam Physical Exam Vital Signs Vital Signs Date Time Temp Pulse Resp B/P (MAP) Pulse Ox O2 Delivery O2 Flow Rate FiO2 10/09/18 12:35 98.5 70 18 175/106 (129) 100 Capillary Refill : Less Than 3 Seconds Labs Laboratory Tests 10/09/18 12:34: White Blood Count 8.2, Red Blood Count 3.52L, Hemoglobin 8.5L, Hematocrit 28L, Mean Corpuscular Volume 80, Mean Corpuscular Hemoglobin 24L, Mean Corpuscular Hemoglobin Concent 30L, Red Cell Distribution Width 15.2H, Platelet Count 387, Mean Platelet Volume 10.1, Neutrophils (%) (Auto) 72, Lymphocytes (%) (Auto) 19 , Monocytes (%) (Auto) 8, Eosinophils (%) (Auto) 1, Basophils (%) (Auto) 0, Neutrophils # (Auto) 5.9, Lymphocytes # (Auto) 1.6, Monocytes # (Auto) 0.6, Eosinophils # (Auto) 0.1, Basophils # (Auto) 0.0, Sodium Level 137, Potassium Level 4.0, Chloride Level 109H, Carbon Dioxide Level 22, Anion Gap 6, Blood Urea Nitrogen 17, Creatinine 0.76, Estimat Glomerular Filtration Rate > 60, BUN/ Creatinine Ratio 22, Glucose Level 81, Calcium Level 8.2L, Corrected Calcium 8.8 , Magnesium Level 2.0, Total Bilirubin 0.2, Aspartate Amino Transf (AST/SGOT) 49H, Alanine Aminotransferase (ALT/SGPT) 62H, Alkaline Phosphatase 141H, Total Protein 6.5, Albumin 3.3 10/09/18 13:50: Urine Color REDH, Urine Clarity CLOUDY, Urine pH 6, Urine Specific [place] 1.020 , Urine Protein 3+H, Urine Glucose (UA) NEGATIVE, Urine Ketones 2+H, Urine Nitrite POSITIVEH, Urine Bilirubin NEGATIVE, Urine Urobilinogen NORMAL, Urine Leukocyte Esterase 3+H, Urine RBC (Auto) 5+H, Urine RBC TNTCH, Urine WBC TNTCH, Urine Squamous Epithelial Cells 0-2, Urine Crystals NONE, Urine Bacteria FEWH, Urine Casts NONE, Urine Mucus NEGATIVE, Urine Culture Indicated YES General Appearance: No Apparent Distress, WD/WN Respiratory: Chest Non Tender Cardiovascular: Regular Rate, Rhythm Abdominal: normal bowel sounds, non tender Pelvic Exam: deferred Extremity: Swelling Assessment/Plan Admission Diagnosis 38 yo with Late PP PreE PP NVD Day 6 Elevated liver enzymes Admission Status: Observation Reason for Inpatient Admission: late preeclampsia ALLY WANG DO Oct 09, 2018 15:33
[2018-10-09] MEDS ORDERED: cefTRIAXone FOR IV USE 1,000 MG in NS (IVPB) 50 ML IV SCH (16:00)
--- NOTE | 2018-10-09 16:20 | NUR ---
SENTHIL GONGORA presented to unit via W/C from ED, accompanied by TRAY CHECKER WITH ELEVATED BLOOD PRESSURES, . SENTHIL GONGORA to bed, oriented to bed controls, call light, TV, heat, and A/C controls.
[2018-10-09] MEDS: D5 LR IV SOLUTION 1,000 ML IV SCH (16:33)
[2018-10-09] MEDS: HYDROcodone/APAP 5 MG/325 MG (LORTAB) TAB PO PRN ×3 (16:42→21:23)
[2018-10-09] MEDS ORDERED: METH250T5 PO (16:50)
--- NOTE | 2018-10-09 16:50 | NUR ---
MEDS WERE GIVEN; SEE EMAR FOR FURTHER. ADMISSION QUESTIONS ADDRESSED, INITIAL SHIFT ASSESSMENT COMPLETED; SEE INTERVENTION FOR FURTHER. S/O AT THE BEDSIDE. THIS RN PLANS TO RETURN IN APPROX 30 MINS TO START MAGNESIUM, PT VERBALIZES UNDERSTANDING. CALL LIGHT WITHIN REACH.
--- NOTE | 2018-10-09 17:46 | NUR ---
MAGNESIUM BOLUS STARTED; SEE EMAR FOR FURTHER. VERIFIED WITH Venita DUPREE RN AT THE BEDSIDE.
--- NOTE | 2018-10-09 18:15 | NUR ---
LYNNE INSERTED; SEE INTERVENTION FOR FURTHER.
[2018-10-09] MEDS: MAGNESIUM SULFATE DRIP 500 ML IV SCH (18:22)
--- NOTE | 2018-10-09 18:30 | NUR ---
ICE PACK PROVIDED AND PLACED AT THE PERINEUM TO TRY AND HELP EASE THE DISCOMFORT OF THE CATHETER.
--- NOTE | 2018-10-09 19:15 | NUR ---
REPORT TO TAYLOR UMANZOR.
[2018-10-09] MEDS: IBUPROFEN 600 MG (MOTRIN) TAB PO SCH (21:22)
[2018-10-10] VITALS (15 sets, daily range): BP systolic 114–155; BP diastolic 76–103
[2018-10-10] MEDS: HYDROcodone/APAP 5 MG/325 MG (LORTAB) TAB PO PRN ×4 (01:25→21:04)
[2018-10-10] MEDS: IBUPROFEN 600 MG (MOTRIN) TAB PO SCH ×3 (03:10→17:05)
[2018-10-10] MEDS: D5 LR IV SOLUTION 1,000 ML IV SCH (04:35)
[2018-10-10] MEDS: MAGNESIUM SULFATE DRIP 500 ML IV SCH (04:36)
[2018-10-10 07:25] LABS: ALANINE AMINOTRANSFERASE 61 U/L (0-55); ALKALINE PHOSPHATASE 126 U/L (40-136); BILIRUBIN,TOTAL 0.2 MG/DL (0.1-1.0); BUN/CREATININE RATIO 15; CALCIUM 7.2 MG/DL (8.5-10.1); CARBON DIOXIDE 20 MMOL/L (21-32); CHLORIDE 108 MMOL/L (98-107); CREATININE SERUM 0.62 MG/DL (0.60-1.30); GFR ESTIMATED > 60; GLUCOSE 102 MG/DL (70-105); POTASSIUM 3.7 MMOL/L (3.6-5.0); SODIUM 137 MMOL/L (135-145); TOTAL PROTEIN 5.8 GM/DL (6.4-8.2)
[2018-10-10] MEDS ORDERED: amLODIPine 5 MG (NORVASC) TAB PO SCH ×2 (09:00)
--- NOTE | 2018-10-10 12:00 | NUR ---
Calf SCD's applied at this time for DVT prophylaxis.
--- NOTE | 2018-10-10 13:53 | Progress Note-Standard ---
Standard Progress Note Progress Notes/Assess & Plan Date Seen by a Provider: Oct 10, 2018 Time Seen by a Provider: 13:45 Progress/Assessment & Plan Laboratory Tests Test 10/10/18 06:40 Range/Units Sodium Level 137 135-145 MMOL/L Potassium Level 3.7 3.6-5.0 MMOL/L Chloride Level 108 H 98-107 MMOL/L Carbon Dioxide Level 20 L 21-32 MMOL/L Anion Gap 9 5-14 MMOL/L Blood Urea Nitrogen 9 7-18 MG/DL Creatinine 0.62 0.60-1.30 MG/DL Estimat Glomerular Filtration Rate > 60 BUN/Creatinine Ratio 15 Glucose Level 102 70-105 MG/DL Calcium Level 7.2 L 8.5-10.1 MG/DL Corrected Calcium 8.0 L 8.5-10.1 MG/DL Total Bilirubin 0.2 0.1-1.0 MG/DL Aspartate Amino Transf (AST/SGOT) 45 H 5-34 U/L Alanine Aminotransferase (ALT/SGPT) 61 H 0-55 U/L Alkaline Phosphatase 126 40-136 U/L Total Protein 5.8 L 6.4-8.2 GM/DL Albumin 3.0 L 3.2-4.5 GM/DL VS - Last 72 Hours, by Label 10/09/18 10/09/18 10/09/18 10/09/18 12:35 16:10 16:30 17:45 Temp 98.5 99.4 Pulse 70 68 67 64 Resp 18 20 20 18 B/P (MAP) 175/106 (129) 151/93 (112) 162/88 (112) 153/88 (109) Pulse Ox 100 99 98 99 O2 Delivery Room Air Room Air 10/09/18 10/09/18 10/09/18 10/09/18 18:00 19:00 20:00 21:00 Temp 99.2 Pulse 76 81 86 71 Resp 18 18 18 20 B/P (MAP) 153/81 (105) 147/86 (106) 144/81 (102) 134/78 (96) Pulse Ox 99 99 99 96 O2 Delivery Room Air Room Air Room Air 10/09/18 10/09/18 10/10/18 10/10/18 22:00 23:00 00:00 01:00 Temp 96.2 Pulse 80 86 74 71 Resp 18 20 20 20 B/P (MAP) 136/80 (98) 154/88 (110) 154/90 (111) 142/91 (108) Pulse Ox 98 96 99 98 O2 Delivery Room Air Room Air 10/10/18 10/10/18 10/10/18 10/10/18 02:00 03:00 04:00 05:00 Temp 97.0 Pulse 80 76 59 Resp 20 18 20 B/P (MAP) 123/76 (92) 114/77 (89) 139/79 (99) 128/87 (101) Pulse Ox 95 95 99 O2 Delivery Room Air Room Air Room Air 10/10/18 10/10/18 10/10/18 10/10/18 05:00 06:00 08:00 09:00 Pulse 75 77 71 79 Resp 18 16 18 18 B/P (MAP) 119/80 (93) Pulse Ox 96 96 O2 Delivery Room Air Room Air EDEL NUNEZ DO Oct 10, 2018 13:53
--- NOTE | 2018-10-10 14:15 | NUR ---
Dr. Hernandez to bedside to discuss POC with pt.
[2018-10-10] MEDS ORDERED: amLODIPine 5 MG (NORVASC) TAB PO NR (14:30)
--- NOTE | 2018-10-10 15:15 | NUR ---
Magnesium d/c'd at this time. Brito catheter d/c'd. 1275ml clear yellow urine emptied. Pericare performed. Fresh vpad applied.
[2018-10-10] MEDS ORDERED: cefTRIAXone FOR IV USE 1,000 MG in NS (IVPB) 50 ML IV NR (16:00)
--- NOTE | 2018-10-10 16:00 | NUR ---
Pt assisted to bathroom, +void. Pericare performed. Fresh gown on. Linens changed. Abx started and norvasc given.
[2018-10-11] MEDS: IBUPROFEN 600 MG (MOTRIN) TAB PO SCH ×2 (00:32→07:07)
[2018-10-11] MEDS: HYDROcodone/APAP 5 MG/325 MG (LORTAB) TAB PO PRN ×2 (01:02→07:08)
[2018-10-11 03:54] VITALS: BP 141/84
[2018-10-11 08:44] VITALS: BP 151/89
--- NOTE | 2018-10-11 08:44 | Progress Note-Standard ---
Standard Progress Note Progress Notes/Assess & Plan Date Seen by a Provider: Oct 11, 2018 Time Seen by a Provider: 08:32 Progress/Assessment & Plan VS - Last 72 Hours, by Label 10/09/18 10/09/18 10/09/18 10/09/18 12:35 16:10 16:30 17:45 Temp 98.5 99.4 Pulse 70 68 67 64 Resp 18 20 20 18 B/P (MAP) 175/106 (129) 151/93 (112) 162/88 (112) 153/88 (109) Pulse Ox 100 99 98 99 O2 Delivery Room Air Room Air 10/09/18 10/09/18 10/09/18 10/09/18 18:00 19:00 20:00 21:00 Temp 99.2 Pulse 76 81 86 71 Resp 18 18 18 20 B/P (MAP) 153/81 (105) 147/86 (106) 144/81 (102) 134/78 (96) Pulse Ox 99 99 99 96 O2 Delivery Room Air Room Air Room Air 10/09/18 10/09/18 10/10/18 10/10/18 22:00 23:00 00:00 01:00 Temp 96.2 Pulse 80 86 74 71 Resp 18 20 20 20 B/P (MAP) 136/80 (98) 154/88 (110) 154/90 (111) 142/91 (108) Pulse Ox 98 96 99 98 O2 Delivery Room Air Room Air 10/10/18 10/10/18 10/10/18 10/10/18 02:00 03:00 04:00 05:00 Temp 97.0 Pulse 80 76 59 Resp 20 18 20 B/P (MAP) 123/76 (92) 114/77 (89) 139/79 (99) 128/87 (101) Pulse Ox 95 95 99 O2 Delivery Room Air Room Air Room Air 10/10/18 10/10/18 10/10/18 10/10/18 05:00 06:00 08:00 08:00 Pulse 75 77 71 71 Resp 18 16 18 16 B/P (MAP) 119/80 (93) 131/91 (104) Pulse Ox 96 96 98 O2 Delivery Room Air Room Air Room Air 10/10/18 10/10/18 10/10/18 10/10/18 09:00 11:00 12:00 13:00 Pulse 79 87 91 84 Resp 18 18 18 18 B/P (MAP) 153/98 (116) Pulse Ox 98 O2 Delivery Room Air 10/10/18 10/10/18 10/10/18 10/11/18 14:00 18:00 23:30 03:54 Temp 97.6 Pulse 90 97 93 Resp 18 16 18 B/P (MAP) 146/101 (116) 138/93 (108) 141/84 (103) Pulse Ox 100 O2 Delivery Room Air 10/10/18 10/11/18 23:30 03:54 Pulse 93 Resp 18 B/P (MAP) 138/93 (108) 141/84 (103) 10/11/18 00:00 Intake Total 2100 ml Output Total 2550 ml Balance -450 ml Final Diagnosis post preeclampsia Focused Exam Respiratory: Chest Non Tender, Lungs Clear, Normal Breath Sounds, No Accessory Muscle Use, No Respiratory Distress Cardiovascular: Regular Rate, Rhythm, No Gallop, No JVD, No Murmur, Normal Peripheral Pulses EDEL NUNEZ DO Oct 11, 2018 08:44
[2018-10-11] MEDS ORDERED: AMPICILLIN FOR IV USE 2,000 MG in NS (IVPB) 50 ML IV NR (08:45)
--- NOTE | 2018-10-11 08:45 | NUR ---
Assessment completed at bedside. VSS. No questions or concerns voiced by pt. at this time. Call light within reach. Will continue to monitor.
[2018-10-11] MEDS ORDERED: AMPI500C9 PO (08:56)
[2018-10-11] MEDS ORDERED: CEFI400C2 PO (08:56)
[2018-10-11] MEDS ORDERED: AMLO10TA6 PO (08:56)
--- NOTE | 2018-10-11 08:59 | Discharge Inst-Women's Service ---
Discharge Inst-Women's Serv Depart Medication/Instructions New, Converted or Re-Newed RX: RX on Chart Instructions continue all antibiotics until completed Norvasc 10 mg daily Call for blood pressures of systolic > 160 and/or diastolic > 100. Follow up with Cristal Campos next week for blood pressure check and with Dr. Chen in 2 weeks Final Diagnosis post preeclampsia UTI (final results of culture are pending) Consults/Follow Up Additional Follow Up: Yes (next week with Cristal Campos. Please call Saturday for appointment; [address] Chen) Activity Activity: Activity as Tolerated Driving Instructions: You May Drive NO SMOKING: NO SMOKING Nothing Inside Vagina: No Douching, No [place], No Tampons Diet Discharge Diet: No Restrictions Symptoms to Report to : Bleeding Excessive, Pain Increased, Fever Over 101 Degrees F, Pain/Pressure in Jaw, Cramps in Feet or Legs, Vaginal Discharge Foul , Wt Gain Consecutive Days For Any Problems or Questions: Contact Your Physician EDEL NUNEZ DO Oct 11, 2018 08:59
[2018-10-11] MEDS ORDERED: amLODIPine 10 MG (NORVASC) TAB PO SCH (09:00)
--- NOTE | 2018-10-11 09:10 | NUR ---
Dr. Hernandez to bedside to discuss POC with pt.
--- NOTE | 2018-10-11 09:28 | Discharge Summary ---
Diagnosis/Chief Complaint Date of Admission Oct 09, 2018 at 15:29 Date of Discharge Discharge Date: Oct 11, 2018 Discharge Summary Hospital Course Labs Laboratory Tests 10/09/18 12:34: Red Blood Count 3.52L, Hemoglobin 8.5L, Hematocrit 28L, Mean Corpuscular Hemoglobin 24L, Mean Corpuscular Hemoglobin Concent 30L, Red Cell Distribution Width 15.2H, Chloride Level 109H, Calcium Level 8.2L, Aspartate Amino Transf ( AST/SGOT) 49H, Alanine Aminotransferase (ALT/SGPT) 62H, Alkaline Phosphatase 141H 10/09/18 13:50: Urine Color REDH, Urine Protein 3+H, Urine Ketones 2+H, Urine Nitrite POSITIVEH , Urine Leukocyte Esterase 3+H, Urine RBC (Auto) 5+H, Urine RBC TNTCH, Urine WBC TNTCH, Urine Bacteria FEWH 10/10/18 06:40: Chloride Level 108H, Calcium Level 7.2L, Aspartate Amino Transf (AST/SGOT) 45H, Alanine Aminotransferase (ALT/SGPT) 61H, Carbon Dioxide Level 20L, Corrected Calcium 8.0L, Total Protein 5.8L, Albumin 3.0L 10/11/18 08:54: Procedures None. Discharge Physical Examination Allergies: Coded Allergies: No Known Drug Allergies (Unverified , 10/02/18) Vitals & I&Os Vital Signs Date Time Temp Pulse Resp B/P (MAP) Pulse Ox O2 Delivery O2 Flow Rate FiO2 10/11/18 08:44 97.9 97 16 151/89 (109) 97 Room Air Discharge Home Medications Reviewed and agree with Discharge Medication list on patient's Discharge Instruction sheet Instructions to Patient/Family Please see electronic discharge instructions given to patient. EDEL NUNEZ DO Oct 11, 2018 09:28
[2018-10-11] MEDS ORDERED: LIDOCAINE 1% INJ 20 ML 20 ML VIAL IJ SCH (09:30)
[2018-10-11] MEDS ORDERED: AUGMENTIN 875 MG TAB (AMOXICILLIN/CLAVULANATE) PO SCH (09:30)
[2018-10-11] MEDS ORDERED: cefTRIAXone 1,000 MG/2.86 ml vial (IM ONLY) IM SCH (09:30)
[2018-10-11 09:38] LABS: ALANINE AMINOTRANSFERASE 49 U/L (0-55); ALBUMIN 3.1 GM/DL (3.2-4.5); ALKALINE PHOSPHATASE 120 U/L (40-136); BILIRUBIN,TOTAL 0.2 MG/DL (0.1-1.0); BUN/CREATININE RATIO 11; CALCIUM 7.4 MG/DL (8.5-10.1); CARBON DIOXIDE 19 MMOL/L (21-32); CHLORIDE 111 MMOL/L (98-107); CREATININE SERUM 0.64 MG/DL (0.60-1.30); GFR ESTIMATED > 60; GLUCOSE 87 MG/DL (70-105); SODIUM 138 MMOL/L (135-145); TOTAL PROTEIN 5.9 GM/DL (6.4-8.2)
[2018-10-11 10:30] VITALS: BP 151/89
--- NOTE | 2018-10-11 10:35 | NUR ---
Discharge packet given and explained to pt. Verbal and signature obtained to verify understanding. Scripts given to pt. as well. Pt. ambulated to personal vehicle accompanied by this RN. All personal belongings with pt. No s/s of distress noted.
== END 2018-10-11 08:44 | disposition home or self-care (01) ==
LOC: EDUNIT# 11:46 → ER 11:47 → UNDOADMOB 15:29 → LDRP 15:29 → UNDODISOB 10-11 10:30
PROVIDERS: ADMIT Obstetrics & Gynecology; ATTEND Obstetrics & Gynecology
DX: O14.95 Unspecified pre-eclampsia, complicating the puerperium (principal); R74.8 Abnormal levels of other serum enzymes; O99.63 Diseases of the digestive system complicating the puerperium; K21.9 Gastro-esophageal reflux disease without esophagitis
CPT/HCPCS: 36415; 80053; 81000; 83615; 83735; 85025; 87077; 87088; 87186; 93005; 96361; 96372; 96374; 96375; 96376; G0378